=== PATIENT | male | born 1950 | race Caucasian/White ===

== ENCOUNTER 2019-08-22 14:45 | Outpatient (CLI) | payer MEDICARE, SELFPAY ==
--- NOTE | 2019-08-22 14:47 | US_ITS ---
WS: [id number] ULTRASOUND RENAL TECHNIQUE: Ultrasound examination of both kidneys. CLINICAL INFORMATION: CHRONIC KIDNEY DZ/STAGE 3 COMPARISON: None. FINDINGS: RIGHT: Simple right kidney cyst measuring 1.5 x 1.3 cm and 1.7 x 1.3 cm. Right kidney is normal in size and appearance. Echogenicity: Normal. Cortical thickness: 1.1 cm; Normal. Hydronephrosis: None. Perinephric fluid: None. Right kidney measures: 10.4 cm x 4.2 cm x 4.7 cm. LEFT: Simple left kidney cyst measuring 2.3 x 2.4 cm Left kidney is normal in size and appearance. Echogenicity: Normal. Cortical thickness: 1.3 cm; Normal. Hydronephrosis: None. Perinephric fluid: None. Left kidney measures: 10.9 cm x 4.0 cm x 4.5 cm. Normal visualized aorta. Marked diffuse bladder wall thickening can be seen with chronic cystitis and /or bladder outlet obstruction.Partially visualized enlarged nodular prostate. Recommend correlation PSA. US/US renal BI* [id number] IMPRESSION: 1. No hydronephrosis in either kidney. 2. Bilateral simple renal cysts. 3. Diffuse bladder wall thickening can be seen with chronic cystitis and/or bl adder outlet obstruction. 4. Partially visualized enlarged nodular prostate. Recommend correlation PSA.
== END 2019-08-22 14:46 | disposition home or self-care (01) ==
LOC: RAD 14:45
PROVIDERS: PCP Family Medicine; Visit Provider Registered Nurse
DX: N18.3 Chronic kidney disease, stage 3 (moderate) (principal); Q61.02 Congenital multiple renal cysts; N40.0 Benign prostatic hyperplasia without lower urinary tract symptoms
CPT/HCPCS: 76770

== ENCOUNTER → 2021-08-17 09:20 | Outpatient (BNVA) | payer MEDICARE, SELFPAY | PROVIDERS: PCP Family Medicine; Visit Provider Family Medicine | DX: N28.9 Disorder of kidney and ureter, unspecified (principal); E11.9 Type 2 diabetes mellitus without complications | CPT/HCPCS: 80053; 83036 ==

== ENCOUNTER → 2021-11-04 09:08 | Outpatient (BNVA) | payer MEDICARE, SELFPAY | PROVIDERS: PCP Family Medicine; Visit Provider Family Medicine | DX: E11.9 Type 2 diabetes mellitus without complications (principal); N28.9 Disorder of kidney and ureter, unspecified | CPT/HCPCS: 80053; 80061; 83036 ==

== ENCOUNTER → 2022-05-12 08:37 | Outpatient (BNVA) | payer MEDICARE, SELFPAY | PROVIDERS: PCP Family Medicine; Visit Provider Family Medicine | DX: N28.9 Disorder of kidney and ureter, unspecified (principal); E11.9 Type 2 diabetes mellitus without complications | CPT/HCPCS: 80053; 80061; 82607; 83036; 85025 ==

== ENCOUNTER → 2022-11-28 08:17 | Outpatient (BNVA) | payer MEDICARE, SELFPAY | PROVIDERS: PCP Family Medicine; Visit Provider Family Medicine | DX: E11.9 Type 2 diabetes mellitus without complications (principal); N28.9 Disorder of kidney and ureter, unspecified; Z13.6 Encounter for screening for cardiovascular disorders | CPT/HCPCS: 80053; 80061; 83036 ==

== ENCOUNTER 2023-01-12 13:38 | Emergency (ER) | payer MEDICARE, SELFPAY ==
--- NOTE | 2023-01-12 13:41 | XR_ITS ---
WS: [id number] Left ankle, 3 views, 01/12/2023 Clinical Data: injury Comparison: None. Findings: There is a fracture of the distal left fibula. There is a medial malleolar fracture. The talus has sl ipped laterally about 0.8 cm from the tibia. There is minimal soft tissue swelling over the medial malleolus. Impression: Bimalleolar fracture of the left ankle.
[2023-01-12 13:50] VITALS: BP 180/102; PULSE 72; RESP 16; TEMP 37.1; O2SAT 100; BMI 22.4
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
--- NOTE | 2023-01-12 14:17 | XR_ITS ---
WS: [id number] Left knee, 3 views, 01/12/2023 Clinical Data: injury Comparison: None. Findings: No fractures or dislocations are seen. There is medial joint compartment narrowing with spurring of t he medial femoral condyle. The posterior patella shows spurring along with an anterior superior spur. The soft tissues are unremarkable. Impression: Mild osteoarthritis of the left knee Kellgren-Jackson Classification: grade 2 (minimal): definite osteophytes and possible joint space na rrowing
--- NOTE | 2023-01-12 14:17 | XR_ITS ---
WS: [id number] Left leg including the tibia and fibula, AP and lateral views, 01/12/2023 Clinical Data: injury Comparison: Left ankle, 01/12/2023 Findings: There is a fracture of the distal left fibula. The medial malleolar fracture is not included on the A P view. There is a shift of the talus laterally from the tibia. The proximal left tibia and fibula ar e intact. Impression: Bimalleolar fracture of left ankle.
--- NOTE | 2023-01-12 14:55 | DCPLANNER ---
Message was sent to podiatry on 01/12/23 at [facility] to contact this patient for appt.
== END 2023-01-12 15:35 | disposition home or self-care (01) ==
PROVIDERS: Emergency Provider Emergency Medicine; PCP Family Medicine
DX: S82.842A Displaced bimalleolar fracture of left lower leg, initial encounter for closed fracture (principal); Z79.4 Long term (current) use of insulin; W20.8XXA Other cause of strike by thrown, projected or falling object, initial encounter; Y99.0 Civilian activity done for income or pay
CPT/HCPCS: 73562; 73590; 73610; 99284

== ENCOUNTER → 2023-01-13 12:40 | Outpatient (BNVA) | payer MEDICARE, SELFPAY | PROVIDERS: PCP Family Medicine; Visit Provider Podiatrist Foot & Ankle Surgery | DX: S82.852A Displaced trimalleolar fracture of left lower leg, initial encounter for closed fracture (principal); X58.XXXA Exposure to other specified factors, initial encounter | CPT/HCPCS: 99204 ==

== ENCOUNTER 2023-01-20 06:54 | Day surgery (SDC) | payer MEDICARE, SELFPAY ==
[2023-01-20] VITALS (10 sets, daily range): BP systolic 108–149; BP diastolic 59–83; PULSE 59–72; RESP 12–19; TEMP 36.6–36.9; O2SAT 96–100; BMI 23.0
--- NOTE | 2023-01-20 | XR_ITS ---
WS: [id number] Left ankle, C-arm fluoroscopy views, 01/20/2023 Clinical Data: OR pic, orif trimalleolar orif Comparison: Left ankle, 01/12/2023 Findings: Dr. Cornell repaired the bimalleolar fracture of the left ankle with a plate and screws on the distal left fibula and oblique screws in the medial malleolus. Impression: Internal fixation of bimalleolar fracture of left ankle.
--- NOTE | 2023-01-20 05:59 | P.HPUD_ITS ---
Surgery/Procedure H&P Update DATE OF PROCEDURE: January 20, 2023 DATE H&P PERFORMED: 01/13/23 H&P UPDATE INFORMATION: I have reviewed H&P completed within last 30 days, I have examined patient prior to procedure, No changes to prior documentation and H&P is in [facility] [place] [place] EMR on date indicated PLANNED PROCEDURE: Operation Date: 01/20/23 08:40 Proposed Procedures p :?Open reduction internal fixation right trimalleolar fracture 19481,S82.852(Right) - Alejo Cornell DPM
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
--- NOTE | 2023-01-20 06:07 | P.HPUD_ITS ---
Surgery/Procedure H&P Update DATE OF PROCEDURE: January 20, 2023 DATE H&P PERFORMED: 01/13/23 H&P UPDATE INFORMATION: I have reviewed H&P completed within last 30 days, I have examined patient prior to procedure, No changes to prior documentation and H&P is in [facility] [place] EMR on date indicated PRIMARY INDICATION FOR PROCEDURE: Left trimalleolar ankle fracture PLANNED PROCEDURE: Operation Date: 01/20/23 08:40 Proposed Procedures p :?Open reduction internal fixation left trimalleolar fracture 71071,S82.852(Right) - Alejo Cornell DPM
[2023-01-20 07:22] LABS: Glucose Point of Care 274 mg/dL (70-110)
--- NOTE | 2023-01-20 07:24 | ANES.PREANE2 ---
Pre-Anesthetic Assessment Height/Weight: Height 1.83 m Weight 77.111 kg Temp Pulse Resp BP Pulse Ox O2 Del Method 98.5 F 72 17 149/83 97 Room Air 01/20/23 07:13 01/20/23 07:13 01/20/23 07:13 01/20/23 07:13 01/20/23 07:13 01/20/23 07:13 Preop Diagnosis: Right trimalleolar fracture Operation Date: 01/20/23 08:40 Proposed Procedures p :?Open reduction internal fixation left trimalleolar fracture 31625,S82.852(Left) - Alejo Cornell DPM Familial anesthetic complications: None Was Beta Jose taken within 24 hours: Yes Was Clonidine taken within 24 hours: N/A Last intake: Intake Last Liquid Date 01/19/23 Last Liquid Time 23:00 Last Solid Date 01/19/23 Last Solid Time 18:00 Social No alcohol and No tobacco Exam alert, oriented x 3, clear to auscultation bilaterally and regular rate & rhythm Airway Mallampati: Class II Dentition: false Chronic Renal Insufficiency Metabolic Diabetes Mellitus and Hyperlipidemia Anesthetic Plan ASA status: 3 Anesthesia: General and Regional (specify below) Risk of > 500 ml blood loss (7ml/kg in children): No Medications/Allergies Home Medications Medication Instructions Recorded Confirmed Last Taken Type lisinopril 20 1 tab PO DAILY #90 tabs 02/22/22 01/19/23 01/19/23 Rx mg-hydrochlorothiazide 12.5 mg tablet insulin lispro protamine-lispro 15 unit (0.15 mL) SUBCUT BID #10 mL 06/17/22 01/19/23 01/19/23 Rx 100 unit/mL (75-25) subcutaneous susp (Humalog Mix 75-25(U-100)Insuln) atorvastatin 20 mg tablet 20 mg PO DAILY #90 tabs 09/19/22 01/19/23 01/19/23 Rx propranolol 80 mg capsule,24 80 mg PO DAILY #90 caps 09/19/22 01/19/23 01/19/23 Rx hr,extended release metformin 500 mg tablet 500 mg PO BID #180 tabs 12/19/22 01/19/23 01/19/23 Rx hydrocodone 10 mg-acetaminophen 1 tab PO Q6H PRN pain 7 days #28 01/20/23 Unknown Rx 325 mg tablet tabs Allergies Allergy/AdvReac Type Severity Reaction Status Date / Time No Known Allergies Allergy Verified 01/13/23 12:47 Data Anesthesia Cardiac Studies: No Data to Display
[2023-01-20] MEDS: sodium chloride 0.9% 1,000 ML 30 ML IV (07:25)
[2023-01-20] MEDS: insulin regular-human 10 UNIT in SYRINGE 1 EACH IVP (07:47)
[2023-01-20 08:03] LABS: Blood Urea Nitrogen 49 mg/dL (8-23); Calcium 9.6 mg/dL (8.5-10.5); Carbon Dioxide 23 mmol/L (22-29); Chloride 98 mmol/L (98-107); Glucose 273 mg/dL (65-115); Osmolality Calculated 303 mOsm/kg (285-295); Sodium 135 mmol/L (136-145)
[2023-01-20 08:04] LABS: Anion Gap 18.8 (5-19); Potassium 4.8 mmol/L (3.5-5.1)
--- NOTE | 2023-01-20 08:19 | ANES.PROC ---
Anesthesia Procedures Procedure/Date: 01/20/23 Nerve Block ^: Nerve Block 1: Main Anesthesia: general anesthesia Time Out Performed: Yes Consent: requested by attending/covering physician, from patient, from other, risks and benefits reviewed and patient agrees to proceed Nerve block location: popliteal (L) Anesthesia monitors applied: pulse oximetry, EKG, BP cuff and oxygen Nerve block position: supine Anesthetic Used: ropivicaine 0.5% (30 ml) and with decadron (4 mg) Nerve Stimulator Used?: No Interscalene/Femoral BLK: 4 stimuplex 21 g needle used for position and inplane approach, visualize local anesthetic spread and no vascular puncture identified Injection: neg aspiration of heme Patient Tolerated Procedure: well and no complications Complications: none
[2023-01-20 08:25] LABS: Glucose Point of Care 207 mg/dL (70-110)
[2023-01-20] MEDS: ceFAZolin 2,000 MG in sodium chloride 0.9% (plus) 50 ML 100 MG IV (08:54)
[2023-01-20] MEDS: BUPivacaine 0.5% INJ 10 mL INJECTION (09:19)
--- NOTE | 2023-01-20 10:05 | P.BOP_ITS ---
Date of Procedure: 01/20/23 Surgeon: Alejo Cornell DPM Assistant Accounting Manager(s): Moe Robledo Procedure(s) performed: Open reduction internal fixation left trimalleolar fracture Findings of the procedure(s): none Estimated blood loss: 5 mL Specimen(s) removed: none Post-operative diagnosis: Left trimalleolar fracture Patient tolerated procedure and anesthesia well, no complications.
--- NOTE | 2023-01-20 10:22 | PC.NURSE ---
1022 - oral airway out per pt - simple mask remains in place
--- NOTE | 2023-01-20 14:50 | ANE.PACU2 ---
Inpatient post-anesthesia follow up: Airway intact: Yes Vital signs: Temperature 97.8 F Pulse Rate 65 Respiratory Rate 17 Blood Pressure 111/64 Pulse Oximetry 97 Oxygen Delivery Me thod Room Air Oxygen Flow Rate 6 Fraction of Inspir ed Oxygen Hydration adequate: Yes Nausea and vomiting: No Pain level: 1 Mental status: Baseline
== END 2023-01-20 11:05 | disposition home or self-care (01) ==
PROVIDERS: Anesthesiology; PCP Family Medicine; Visit Provider Podiatrist Foot & Ankle Surgery
PROC: (CPT 27822; principal; 2023-01-20 08:30)
DX: S82.852A Displaced trimalleolar fracture of left lower leg, initial encounter for closed fracture (principal); X58.XXXA Exposure to other specified factors, initial encounter; E11.9 Type 2 diabetes mellitus without complications; E78.5 Hyperlipidemia, unspecified; Z79.4 Long term (current) use of insulin; Z79.84 Long term (current) use of oral hypoglycemic drugs
CPT/HCPCS: 27822; 36415; 36416; 73600; 76000; 80048; 82962; C1713; J0690; J1100; J1815; J2371; J2405; J2704; J2795; J3010; J3490; J7030

== ENCOUNTER → 2023-02-02 15:22 | Outpatient (BNVA) | payer MEDICARE, SELFPAY | PROVIDERS: PCP Family Medicine; Visit Provider Podiatrist Foot & Ankle Surgery | DX: Z98.890 Other specified postprocedural states; S82.852D Displaced trimalleolar fracture of left lower leg, subsequent encounter for closed fracture with routine healing; X58.XXXD Exposure to other specified factors, subsequent encounter | CPT/HCPCS: 73610; 99024 ==

== ENCOUNTER → 2023-02-16 14:25 | Outpatient (BNVA) | payer MEDICARE, SELFPAY | PROVIDERS: PCP Family Medicine; Visit Provider Podiatrist Foot & Ankle Surgery | DX: Z98.890 Other specified postprocedural states (principal); Z87.81 Personal history of (healed) traumatic fracture | CPT/HCPCS: 73610; 99024 ==

== ENCOUNTER → 2023-03-02 13:27 | Outpatient (BNVA) | payer MEDICARE, SELFPAY | PROVIDERS: PCP Family Medicine; Visit Provider Podiatrist Foot & Ankle Surgery | DX: Z98.890 Other specified postprocedural states (principal); E11.9 Type 2 diabetes mellitus without complications; N28.9 Disorder of kidney and ureter, unspecified | CPT/HCPCS: 73610; 80053; 83036; 99024 ==

== ENCOUNTER → 2023-03-16 14:51 | Outpatient (BNVA) | payer MEDICARE, SELFPAY | PROVIDERS: PCP Family Medicine; Visit Provider Podiatrist Foot & Ankle Surgery | DX: Z98.890 Other specified postprocedural states (principal); Z87.81 Personal history of (healed) traumatic fracture; Z47.89 Encounter for other orthopedic aftercare | CPT/HCPCS: 73610; 97760; 99024; L1902 ==

== ENCOUNTER 2023-03-16 15:58 | Outpatient (CLI) | payer MEDICARE, SELFPAY | END 2023-03-16 15:59 | disposition home or self-care (01) | LOC: SPT 15:59 | PROVIDERS: PCP Family Medicine; Visit Provider Podiatrist Foot & Ankle Surgery | DX: Z47.89 Encounter for other orthopedic aftercare (principal); Z87.81 Personal history of (healed) traumatic fracture; Z98.890 Other specified postprocedural states | CPT/HCPCS: 97760; L1902 ==

== ENCOUNTER → 2023-03-30 13:04 | Outpatient (BNVA) | payer MEDICARE, SELFPAY | PROVIDERS: PCP Family Medicine; Visit Provider Podiatrist Foot & Ankle Surgery | DX: Z98.890 Other specified postprocedural states (principal); Z87.81 Personal history of (healed) traumatic fracture | CPT/HCPCS: 73610; 99024 ==

== ENCOUNTER → 2023-05-16 08:26 | Outpatient (BNVA) | payer MEDICARE, SELFPAY | PROVIDERS: PCP Family Medicine; Visit Provider Family Medicine | DX: E11.9 Type 2 diabetes mellitus without complications (principal) | CPT/HCPCS: 83036 ==

== ENCOUNTER → 2023-08-01 08:18 | Outpatient (BNVA) | payer MEDICARE, SELFPAY | PROVIDERS: PCP Family Medicine; Visit Provider Family Medicine | DX: E11.9 Type 2 diabetes mellitus without complications (principal); N28.9 Disorder of kidney and ureter, unspecified | CPT/HCPCS: 80048; 83036 ==

== ENCOUNTER → 2023-11-07 08:29 | Outpatient (BNVA) | payer MEDICARE, SELFPAY | PROVIDERS: PCP Family Medicine; Visit Provider Family Medicine | DX: E11.9 Type 2 diabetes mellitus without complications (principal); N28.9 Disorder of kidney and ureter, unspecified | CPT/HCPCS: 80053; 80061; 83036 ==

== ENCOUNTER → 2024-01-16 08:09 | Outpatient (BNVA) | payer MEDICARE, SELFPAY | PROVIDERS: PCP Family Medicine; Visit Provider Family Medicine | DX: E11.9 Type 2 diabetes mellitus without complications (principal); N28.9 Disorder of kidney and ureter, unspecified; L30.9 Dermatitis, unspecified | CPT/HCPCS: 80053; 83036 ==

== ENCOUNTER → 2024-04-23 08:17 | Outpatient (BNVA) | payer MEDICARE, SELFPAY | PROVIDERS: PCP Family Medicine; Visit Provider Family Medicine | DX: E11.9 Type 2 diabetes mellitus without complications (principal); N28.9 Disorder of kidney and ureter, unspecified | CPT/HCPCS: 80053; 80061; 82607 ==

== ENCOUNTER → 2024-05-02 08:30 | Outpatient (BNVA) | payer MEDICARE, SELFPAY | PROVIDERS: PCP Family Medicine; Visit Provider Family Medicine | DX: E11.9 Type 2 diabetes mellitus without complications (principal) | CPT/HCPCS: 83036 ==

== ENCOUNTER → 2024-07-16 08:27 | Outpatient (BNVA) | payer MEDICARE, SELFPAY | PROVIDERS: PCP Family Medicine; Visit Provider Family Medicine | DX: E11.9 Type 2 diabetes mellitus without complications (principal); N28.9 Disorder of kidney and ureter, unspecified | CPT/HCPCS: 80053; 83036 ==

== ENCOUNTER → 2024-07-30 08:08 | Outpatient (BNVA) | payer MEDICARE, SELFPAY | PROVIDERS: PCP Family Medicine; Visit Provider Family Medicine | DX: N28.9 Disorder of kidney and ureter, unspecified (principal); E87.5 Hyperkalemia | CPT/HCPCS: 80048; 99204 ==

== ENCOUNTER → 2024-08-16 07:43 | Outpatient (BNVA) | payer MEDICARE, SELFPAY | PROVIDERS: PCP Family Medicine; Visit Provider Internal Medicine | DX: E78.2 Mixed hyperlipidemia (principal); N28.9 Disorder of kidney and ureter, unspecified; E11.69 Type 2 diabetes mellitus with other specified complication; Z79.4 Long term (current) use of insulin; Z79.84 Long term (current) use of oral hypoglycemic drugs | CPT/HCPCS: 99214 ==

== ENCOUNTER → 2024-08-22 08:43 | Outpatient (BNVA) | payer MEDICARE, SELFPAY | PROVIDERS: PCP Family Medicine; Visit Provider Family Medicine | DX: E11.9 Type 2 diabetes mellitus without complications (principal); N28.9 Disorder of kidney and ureter, unspecified; E78.2 Mixed hyperlipidemia | CPT/HCPCS: 80053; 80061; 82043; 82951; 83036; 84681; 86337; 86341 ==

== ENCOUNTER → 2024-10-08 08:24 | Outpatient (BNVA) | payer MEDICARE, SELFPAY | PROVIDERS: PCP Family Medicine; Visit Provider Family Medicine | DX: E11.9 Type 2 diabetes mellitus without complications (principal); E78.2 Mixed hyperlipidemia; N28.9 Disorder of kidney and ureter, unspecified | CPT/HCPCS: 80053; 80061; 83036 ==

== ENCOUNTER → 2024-11-05 10:02 | Outpatient (BNVA) | payer MEDICARE, SELFPAY | PROVIDERS: PCP Family Medicine; Visit Provider Internal Medicine | DX: E11.9 Type 2 diabetes mellitus without complications (principal); E78.2 Mixed hyperlipidemia; N28.9 Disorder of kidney and ureter, unspecified; Z79.85 Long-term (current) use of injectable non-insulin antidiabetic drugs | CPT/HCPCS: 99214 ==